=== PATIENT | female | born 1955 | race Hispanic/Latino ===

== ENCOUNTER 2019-01-26 06:57 | Observation (INO) | payer OTHER ==
[2019-01-23 11:11] VITALS: BP 158/84
[2019-01-23 11:18] LABS: BASOPHILS % (AUTO) 0.5 % (0.0-5.0); EOSINOPHILS % (AUTO) 1.1 % (0.0-8.0); HEMATOCRIT 31.5 % (36-48); LYMPHOCYTES % (AUTO) 21.5 % (21.0-51.0); MEAN CORPUSCULAR HEMOGLOBIN 30.8 pg (27.0-33.0); MEAN CORPUSCULAR HGB CONC 33.4 g/dL (32.0-36.0); MONOCYTES % (AUTO) 7.1 % (3.0-13.0); NEUTROPHILS % (AUTO) 69.8 % (40.0-77.0); PLATELET COUNT (AUTO) 191 K/uL (130-400); RED BLOOD CELL COUNT(AUTO) 3.42 MIL/uL (4.00-5.50); RED CELL DISTRIBUTION WIDTH 14.1 % (11.0-15.5); WHITE BLOOD COUNT (AUTO) 6.9 K/uL (4.8-10.8)
[2019-01-23 11:20] LABS: APPEARANCE,URINE Clear (CLEAR); BILIRUBIN,URINE Negative (NEGATIVE); COLOR,URINE Yellow (YELLOW); GLUCOSE, URINE (UA) Negative (NEGATIVE); KETONES,URINE Negative (NEGATIVE); LEUKOCYTE ESTERASE ,URINE Trace (NEGATIVE); NITRATE,URINE Negative (NEGATIVE); OCCULT BLOOD,URINE Negative (NEGATIVE); PROTEIN,URINE Negative (NEGATIVE)
[2019-01-23 11:30] LABS: BACTERIA,URINE Few /HPF (None Seen); RBC,URINE 0-1 /HPF (0-1); WBC,URINE 0-1 /HPF (0-1)
[2019-01-23 11:31] LABS: SQUAMOUS EPITHELIAL CELL,UR 0-2 /HPF (0-2)
[2019-01-23 11:43] LABS: INR 0.92 (0.85-1.15); PROTHROMBIN TIME 9.7 SEC (9.6-11.6)
--- NOTE | 2019-01-23 15:37 | NUR ---
LABS INFORMED DR. CEBALLOS OF ABNORMAL H/H/UA. NO ORDERS RECEIVED. PROCEED WITH PLANNED PROCEDURE.
[~2019-01-26] VITALS: Ht 162.6 cm; Wt 103.1 kg
[2019-01-26] VITALS (24 sets, daily range): BP systolic 95–138; BP diastolic 49–79
[2019-01-26] MEDS: CEFAZOLIN SODIUM 1 GM VIAL IVP SCH ×4 (06:00→23:59)
[~2019-01-26 06:57] MED LIST: ENAL20TA PO; GLIP10TA9 PO; METF-446 PO; PRAV40TA3 PO
[2019-01-26] MEDS ORDERED: CEFAZOLIN SODIUM 1 GM VIAL ONE ×2 (07:42→09:04)
[2019-01-26] MEDS ORDERED: TRANEXAMIC ACID 1000MG/10ML IV ONE ×2 (07:43→11:33)
[2019-01-26] MEDS ORDERED: SUCCINYLCHOLINE 200MG/10ML SYR ONE (07:45)
[2019-01-26] MEDS ORDERED: ROCURONIUM 10MG/1ML SYR 10 MG/ML ML ONE (07:45)
[2019-01-26] MEDS ORDERED: FENTANYL CITRATE PF 50 MCG/1 ML 2ML VIAL ONE (07:45)
[2019-01-26] MEDS ORDERED: SODIUM CHLORIDE 0.9% 1000ML 1,000 ML IV ONE (07:45)
[2019-01-26] MEDS ORDERED: MIDAZOLAM HCL 1 MG/ML 2ML VIAL ONE (07:45)
[2019-01-26] MEDS ORDERED: LIDOCAINE PF 2% 5ML ABBOJECT ONE (07:45)
[2019-01-26] MEDS ORDERED: PROPOFOL 10 MG/ML 20ML VIAL IV ONE (07:45)
[2019-01-26] MEDS ORDERED: LIDOCAINE HCL-MPF 1% 5ML AMP IJ ONE (07:49)
[2019-01-26] MEDS ORDERED: ROPIVACAINE 0.5% 5MG/ML 30ML IJ ONE (07:51)
[2019-01-26] MEDS ORDERED: SODIUM CHLORIDE 0.9% 10 ML VIAL ONE ×2 (07:51→09:14)
[2019-01-26] MEDS ORDERED: PHENYLEPHRINE HCL 10 MG/ML 1ML VIAL IV ONE (09:14)
[2019-01-26] MEDS ORDERED: NEOSTIGMINE 5MG/5ML SYR IV ONE (10:45)
[2019-01-26] MEDS ORDERED: GLYCOPYRROLATE 1 MG/5 ML SYRINGE ONE (10:45)
[2019-01-26] MEDS ORDERED: ONDANSETRON HCL 4 MG/2 ML VIAL ONE (10:45)
[2019-01-26] MEDS: SODIUM CHLORIDE 0.9% 1000ML 1,000 ML IV SCH ×3 (10:46→21:05)
[2019-01-26] MEDS ORDERED: KETOROLAC TROMETHAMINE 30MG/ML ONE (10:46)
[2019-01-26] MEDS ORDERED: TRAMADOL HCL 50 MG TABLET PO PRN (11:00)
[2019-01-26] MEDS ORDERED: LIDOCAINE HCL-MPF 1% 2ML VIAL IV PRN (11:00)
[2019-01-26] MEDS ORDERED: CALCIUM CARBONATE 500 MG TABLET PO PRN (11:00)
[2019-01-26] MEDS ORDERED: DiphenhydrAMINE HCL 50 MG/ML VIAL IVP PRN (11:00)
[2019-01-26] MEDS ORDERED: POTASSIUM CHLORIDE 10% ELIXIR 20 MEQ/15 ML UDCUP PO PRN (11:00)
[2019-01-26] MEDS ORDERED: KETOROLAC TROMETHAMINE 15MG/ML IV PRN (11:00)
[2019-01-26] MEDS ORDERED: FERROUS FUMARATE 324 MG TABLET PO PRN (11:00)
[2019-01-26] MEDS: ACETAMINOPHEN EXTRA STRENGTH 500 MG TABLET PO SCH ×2 (11:00→21:13)
[2019-01-26] MEDS ORDERED: POTASSIUM CHLORIDE 20 MEQ ERTAB PO PRN (11:00)
[2019-01-26] MEDS ORDERED: POTASSIUM CHLORIDE 20MEQ/100ML 100 ML IV PRN (11:00)
[2019-01-26] MEDS ORDERED: ONDANSETRON HCL 4 MG/2 ML VIAL IVP PRN (11:00)
[2019-01-26] MEDS ORDERED: TEMAZEPAM 15 MG CAPSULE PO PRN (11:00)
[2019-01-26] MEDS ORDERED: OXYCODONE HCL 5 MG TAB PO PRN (11:00)
[2019-01-26] MEDS ORDERED: MEPERIDINE-PF 25 MG/ML SYG ONE ×2 (11:09→11:46)
[2019-01-26] MEDS: INSULIN HUMULIN R 100 UNIT/ML 3ML SQ SCH ×3 (11:30→21:00)
[2019-01-26] MEDS ORDERED: MILK175C5 PO (12:30)
[2019-01-26] MEDS ORDERED: FLUT16H NASAL (12:30)
[2019-01-26] MEDS ORDERED: ALOE VERA PO (12:30)
[2019-01-26] MEDS ORDERED: ASPI-1005 PO (12:30)
[2019-01-26] MEDS ORDERED: GINK60CA2 PO (12:30)
[2019-01-26] MEDS ORDERED: PIOG30TA10 PO (12:30)
[2019-01-26] MEDS ORDERED: ASCO10007 PO (12:30)
[2019-01-26] MEDS ORDERED: TURMERIC CURCUMIN PO (12:30)
[2019-01-26] MEDS ORDERED: ACET-2743 PO (12:30)
[2019-01-26] MEDS ORDERED: CACTUS PO (12:30)
[2019-01-26] MEDS ORDERED: UBID50TA3 PO (12:30)
[2019-01-26] MEDS ORDERED: MORINGA PO (12:30)
[2019-01-26] MEDS ORDERED: CHOL50004 PO (12:30)
[2019-01-26] MEDS ORDERED: FLAX100030 PO (12:30)
[2019-01-26] MEDS ORDERED: CALC-239 PO (12:30)
[2019-01-26] MEDS ORDERED: BIOT10004 PO (12:30)
[2019-01-26] MEDS ORDERED: GARL1000 PO (12:30)
[2019-01-26] MEDS: ENALAPRIL MALEATE 10 MG TABLET PO SCH (15:00)
--- NOTE | 2019-01-26 15:26 | NUR ---
DCP CM met with pt discussed dc plans. Pt is independent prior to surgery, lives at home with spuse and daughter. Pt brizuela a cane. Denies any other equipments/services. Pt feels safe to go back home, spouse able to assist with transportation and needs as necessary. Pt agreeable for home w/HH and DME, LYSSA signed for [facility] and [facility]. DC plan to home w/HH and DME. CM to cont to follow up. Addendum: 01/26/19 at 1528 by YONATAN GRIMM LVN CM Amended: Links added.
--- NOTE | 2019-01-26 15:38 | NUR ---
CM Note: [facility] pending approval and delivery for standard walker no wheels and 3 in 1 chair. Faxed order and clinicals to [facility], confirmation received. Spoke to Constanza, will work on standard walker no wheels and 3 in 1 chair. Aware dcp for tomorrow. Pt pending approval and delivery at this time. Primary nurse aware. CM to cont to follow up.
--- NOTE | 2019-01-26 15:48 | NUR ---
AMANUEL Note: [facility] pending approval CM faxed order and clinicals to [facility], confirmation received. Spoke to Normal will wait for papers. Pt pending approval. Primary nurse aware. CM to cont to follow up.
[2019-01-26] MEDS: METFORMIN HCL 500 MG TABLET PO SCH (16:54)
[2019-01-26] MEDS ORDERED: SIMVASTATIN 20 MG TABLET PO SCH (21:00)
[2019-01-26] MEDS ORDERED: TAMSULOSIN HCL 0.4 MG CAP.ER.24H PO SCH (21:00)
[2019-01-26] MEDS ORDERED: BIOTENE MOISTURIZING SPRAY 44.3ML SPRAY MM SCH (21:00)
[2019-01-26] MEDS: PREGABALIN 25 MG CAP PO SCH (21:12)
[2019-01-26] MEDS: CELECOXIB 200 MG CAP PO SCH (21:13)
[2019-01-26] MEDS: ASPIRIN 325 MG TABLET PO SCH (21:13)
[2019-01-26] MEDS: FAMOTIDINE 20MG TAB 20 MG TAB PO SCH (21:13)
[2019-01-26] MEDS: OXYCODONE HCL 5 MG TAB PO PRN (21:24)
[2019-01-27] MEDS: OXYCODONE HCL 5 MG TAB PO PRN ×4 (02:12→14:29)
[2019-01-27] MEDS: ACETAMINOPHEN EXTRA STRENGTH 500 MG TABLET PO SCH ×2 (02:15→11:02)
[2019-01-27 04:00] VITALS: BP 116/65
[2019-01-27] MEDS: CEFAZOLIN SODIUM 1 GM VIAL IVP SCH (04:26)
[2019-01-27 04:42] LABS: HEMATOCRIT 24.4 % (36-48); MEAN CORPUSCULAR HEMOGLOBIN 30.7 pg (27.0-33.0); MEAN CORPUSCULAR HGB CONC 33.6 g/dL (32.0-36.0); MEAN CORPUSCULAR VOLUME 91.4 fL (79-99); PLATELET COUNT (AUTO) 155 K/uL (130-400); RED BLOOD CELL COUNT(AUTO) 2.67 MIL/uL (4.00-5.50); RED CELL DISTRIBUTION WIDTH 14.1 % (11.0-15.5)
[2019-01-27 04:55] LABS: POTASSIUM 3.7 mmol/L (3.5-5.1)
[2019-01-27] MEDS: SODIUM CHLORIDE 0.9% 1000ML 1,000 ML IV SCH (05:46)
[2019-01-27] MEDS: INSULIN HUMULIN R 100 UNIT/ML 3ML SQ SCH ×2 (05:48→11:31)
[2019-01-27] MEDS: METFORMIN HCL 500 MG TABLET PO SCH (07:28)
[2019-01-27 07:48] VITALS: BP 131/70
[2019-01-27] MEDS: PREGABALIN 25 MG CAP PO SCH (08:54)
[2019-01-27] MEDS: ENALAPRIL MALEATE 10 MG TABLET PO SCH (08:54)
[2019-01-27] MEDS: CELECOXIB 200 MG CAP PO SCH (08:54)
[2019-01-27] MEDS: FAMOTIDINE 20MG TAB 20 MG TAB PO SCH (08:55)
[2019-01-27] MEDS: ASPIRIN 325 MG TABLET PO SCH (08:55)
[2019-01-27] MEDS ORDERED: CHOLECALCIFEROL 5000 UNIT PO SCH (09:00)
[2019-01-27] MEDS ORDERED: POLYETHYLENE GLYCOL 3350 17 GM POWD.PACK PO SCH (09:00)
[2019-01-27] MEDS ORDERED: GLIPIZIDE 5 MG TABLET PO SCH (09:00)
[2019-01-27] MEDS ORDERED: PIOGLITAZONE HCL 30 MG TAB PO SCH (09:00)
--- NOTE | 2019-01-27 09:30 | NUR ---
CM Note: [facility] approved and delivered standard walker no wheels and 3 in 1 chair. CM spoke to Darlene devlin/[facility] pt standard walker and 3 in 1 chair approved and delivered. Checked w/pt, DMEs in room. Primary nurse aware. CM to cont to follow up.
--- NOTE | 2019-01-27 10:00 | NUR ---
CM Note: [facility] approved Spoke to Monse claus/. pt has approval and acceptance. pt safe to dc to home via private car. primary nurse aware. CM to cont to follow up.
[2019-01-27 11:14] VITALS: BP 135/73
[2019-01-27] MEDS ORDERED: FERR324T10 PO (12:38)
[2019-01-27] MEDS ORDERED: ASPI-1012 PO (12:38)
[2019-01-27] MEDS ORDERED: HYDR-4457 PO (12:38)
--- NOTE | 2019-01-27 15:45 | NUR ---
INSTRUCTIONS DISCHARGE INSTRUCTIONS GIVEN TO PATIENT AND FAMILY USING TEACH BACK. DRESSING CHANGED RIGHT KNEE PER MD ORDER. IV REMOVED WITH TIP INTACT. DIRECT PRESSURE APPLIED UNTIL BLEEDING CONTROLLED THEN SITE COVERED WITH GAUZE AND SECURED WITH TAPE. F/U APPOINTMENT HAS BEEN MADE. REPORT HAS BEEN CALLED TO [facility], SPOKE TO LUCIE CARDOZO. PENDING RIDE HOME.
[2019-01-27] MEDS ORDERED: BIOTENE MOISTURIZING SPRAY 44.3ML SPRAY MM SCH (21:00)
[2019-01-29] MEDS ORDERED: BISACODYL 10 MG SUPP.RECT RC PRN (11:00)
== END 2019-01-27 17:19 | disposition home health service (06) ==
LOC: DAH 06:57 → DAHIP 06:58 → DAH 06:58 → 4AH 12:36
PROVIDERS: ADMIT Orthopaedic Surgery; ATTEND Orthopaedic Surgery
DX: M17.11 Unilateral primary osteoarthritis, right knee (principal); I10 Essential (primary) hypertension; Z90.89 Acquired absence of other organs; Z90.49 Acquired absence of other specified parts of digestive tract; Z79.899 Other long term (current) drug therapy; Z79.01 Long term (current) use of anticoagulants
CPT/HCPCS: 27447; 36415 ×2; 80048; 81001; 82948 ×6; 85025; 85027; 85610; 87641; 88304; 88311; 96372; 96374; 96375; 96376 ×2; 97116 ×3; 97161; 97530 ×3; A4215; A4221; A4222; A4223; A4649 ×8; A4663; A4930 ×2; C1763; C1776; G0168; G0378 ×29; G8978; G8979; G8980; G8981; G8982; G8983; J0330; J0690 ×5; J1815 ×3; J1885 ×2; J2001; J2175 ×2; J2250; J2370; J2405; J2704; J2710; J2795; J3010; J3490 ×3; J7030 ×2

== ENCOUNTER → 2022-07-18 | Outpatient (CLI) | payer OTHER ==
[~2022-07-18] MED LIST changes: +ACET-2743 PO; +ASCO100031 PO; +ASPI-1012 PO; +BIOT10004 PO; +CALC-242 PO; +CHOL50004 PO; -ENAL20TA PO; +ENAL20TA18 PO; +FERR324T10 PO; +FLAX100030 PO; +FLUT16H NASAL; +MILK175C5 PO; +PIOG30TA70 PO; +TRAM50TA4 PO
== END | disposition home or self-care (01) ==
LOC: RAH 09:14
PROVIDERS: ATTEND Family Medicine
DX: Z01.818 Encounter for other preprocedural examination (principal); E11.9 Type 2 diabetes mellitus without complications; I11.9 Hypertensive heart disease without heart failure; M47.815 Spondylosis without myelopathy or radiculopathy, thoracolumbar region
CPT/HCPCS: 71046

== ENCOUNTER 2022-08-27 06:51 | Observation (INO) | payer OTHER ==
[2022-08-24 11:11] VITALS: BP 155/68
[2022-08-24 11:17] LABS: ALBUMIN 3.7 g/dL (3.5-5.0); CARBON DIOXIDE 25 mmol/L (21-32); CHLORIDE 101 mmol/L (101-111); CREATININE 1.2 mg/dL (0.5-1.5); GLOMERULAR FILTR. RATE CALC 49 mL/min (>90); POTASSIUM 4.8 mmol/L (3.5-5.1); SODIUM SERUM 135 mmol/L (136-145); UREA NITROGEN, BLOOD 27 mg/dL (7-18)
[2022-08-24 11:20] LABS: BASOPHILS % (AUTO) 0.6 % (0.0-5.0); EOSINOPHILS % (AUTO) 1.2 % (0.0-8.0); HEMATOCRIT 33.5 % (36-48); LYMPHOCYTES % (AUTO) 24.2 % (21.0-51.0); MEAN CORPUSCULAR HEMOGLOBIN 29.8 pg (27.0-33.0); MEAN CORPUSCULAR HGB CONC 31.9 g/dL (32.0-36.0); MEAN CORPUSCULAR VOLUME 93.3 fL (79-99); MONOCYTES % (AUTO) 6.3 % (3.0-13.0); NEUTROPHILS % (AUTO) 66.4 % (40.0-77.0); PLATELET COUNT (AUTO) 228 K/uL (130-400); RED BLOOD CELL COUNT(AUTO) 3.59 MIL/uL (4.00-5.50); RED CELL DISTRIBUTION WIDTH 13.2 % (11.0-15.5); WHITE BLOOD COUNT (AUTO) 6.9 K/uL (4.8-10.8)
[2022-08-24 11:21] LABS: APPEARANCE,URINE CLEAR (CLEAR); BILIRUBIN,URINE NEGATIVE (NEGATIVE); COLOR,URINE YELLOW (YELLOW); GLUCOSE, URINE (UA) >=1000 mg/dL (NEGATIVE); KETONES,URINE NEGATIVE (NEGATIVE); LEUKOCYTE ESTERASE ,URINE NEGATIVE Leu/uL (NEGATIVE); NITRATE,URINE NEGATIVE (NEGATIVE); OCCULT BLOOD,URINE NEGATIVE (NEGATIVE); PROTEIN,URINE NEGATIVE (NEGATIVE); UROBILINOGEN,URINE 0.2 mg/dL (0.2-1.0)
[2022-08-24 11:25] LABS: CRP QUANTITATIVE < 2.00 mg/L (0.00-9.0)
[2022-08-24 11:26] LABS: GLUCOSE,RANDOM 404 mg/dL (70-105)
[2022-08-24 11:37] LABS: BACTERIA,URINE Rare /HPF (None Seen); RBC,URINE None Seen /HPF (0-1); WBC,URINE 0-1 /HPF (0-1)
[2022-08-24 11:38] LABS: SQUAMOUS EPITHELIAL CELL,UR Rare /HPF (0-2)
[2022-08-24 11:50] LABS: INR 0.93 (0.85-1.15); PROTHROMBIN TIME 9.8 SEC (9.6-11.6)
[2022-08-24 11:51] LABS: PARTIAL THROMBOPLASTIN TIME 24.4 SEC (26.3-35.5)
[~2022-08-27] VITALS: Ht 162.6 cm; Wt 97.5 kg
[2022-08-27] VITALS (26 sets, daily range): BP systolic 100–155; BP diastolic 48–85
[~2022-08-27 06:51] MED LIST changes: -ACET-2743 PO; -ASCO100031 PO; -ASPI-1012 PO; -BIOT10004 PO; -CALC-242 PO; -CHOL50004 PO; +ENAL-91 PO; -ENAL20TA18 PO; -FERR324T10 PO; -FLAX100030 PO; -FLUT16H NASAL; +GABA-529 PO; -MILK175C5 PO; +PIOG30TA10 PO; -PIOG30TA70 PO; -TRAM50TA4 PO
[2022-08-27] MEDS ORDERED: 0.9%NACL 1000ML 1,000 ML IV ONE (07:30)
[2022-08-27] MEDS: CEFAZOLIN SODIUM 2 GM VIAL ONE ×2 (07:47→10:00)
[2022-08-27] MEDS: VANCOMYCIN 1.5 GM/250 ML BAG 250 ML IV SCH (07:48)
[2022-08-27] MEDS ORDERED: CEFAZOLIN SODIUM 1 GM VIAL ONE (09:14)
[2022-08-27] MEDS ORDERED: PROPOFOL 10 MG/ML 20ML VIAL IV ONE (09:16)
[2022-08-27] MEDS ORDERED: MIDAZOLAM HCL 1 MG/ML 2ML VIAL ONE (09:16)
[2022-08-27] MEDS ORDERED: ONDANSETRON 4MG INJ ONE (09:16)
[2022-08-27] MEDS ORDERED: ROCURONIUM 10MG/1ML SYR 10 MG/ML ML ONE ×2 (09:16→12:03)
[2022-08-27] MEDS ORDERED: FENTANYL CITRATE PF 50 MCG/1 ML 2ML VIAL ONE ×3 (09:16→10:54)
[2022-08-27] MEDS ORDERED: KETOROLAC 30MG VIAL (30MG/ML) ONE (09:17)
[2022-08-27] MEDS ORDERED: ROPIVACAINE 0.5% 5MG/ML 30ML IJ ONE (09:18)
[2022-08-27] MEDS ORDERED: DEXAMETHASONE SOD PHOSPHATE 4 MG/ML 1ML VIAL ONE (09:47)
[2022-08-27] MEDS: TRANEXAMIC ACID 1000MG/10ML ONE ×2 (10:35→11:30)
[2022-08-27] MEDS ORDERED: PHENYLEPHRINE HCL 10 MG/ML 1ML VIAL IV ONE (11:25)
[2022-08-27] MEDS ORDERED: KCL 20 MEQ ERTAB PO PRN (12:00)
[2022-08-27] MEDS ORDERED: KETOROLAC 15MG/ML VIAL (15MG/ML) IV PRN (12:00)
[2022-08-27] MEDS ORDERED: CYCLOBENZAPRINE HCL 10 MG TABLET PO PRN (12:00)
[2022-08-27] MEDS ORDERED: TRAMADOL HCL 50 MG TABLET PO PRN (12:00)
[2022-08-27] MEDS ORDERED: POTASSIUM CHLORIDE 10% ELIXIR 20 MEQ/15 ML UDCUP PO PRN (12:00)
[2022-08-27] MEDS ORDERED: CALCIUM CARB 500MG PO PRN (12:00)
[2022-08-27] MEDS ORDERED: POTASSIUM CHLORIDE 20MEQ/100ML 100 ML IV PRN (12:00)
[2022-08-27] MEDS: DOCUSATE SODIUM 100 MG CAP PO SCH (12:00)
[2022-08-27] MEDS ORDERED: ONDANSETRON 4MG INJ IVP PRN (12:00)
[2022-08-27] MEDS ORDERED: FERROUS FUMARATE 324 MG TABLET PO PRN (12:00)
[2022-08-27] MEDS ORDERED: 0.9%NACL 1000ML 1,000 ML IV SCH (12:00)
[2022-08-27] MEDS ORDERED: MEPERIDINE-PF 25 MG/ML SYG ONE (12:02)
[2022-08-27] MEDS ORDERED: NEOSTIGMINE 5MG/5ML SYR IV ONE (12:03)
[2022-08-27] MEDS ORDERED: GLYCOPYRROLATE 1 MG/5 ML SYRINGE ONE (12:03)
[2022-08-27] MEDS: KETOROLAC 15MG/ML VIAL (15MG/ML) IV SCH ×2 (12:46→20:21)
[2022-08-27] MEDS: GABAPENTIN 100 MG CAPSULE PO SCH ×2 (16:04→20:21)
[2022-08-27] MEDS: CEFAZOLIN SODIUM 1 GM VIAL IVP SCH ×2 (17:17→23:55)
[2022-08-27] MEDS: INSULIN HUMULIN R 100 UNIT/ML 3ML SQ SCH ×2 (17:27→20:22)
[2022-08-27] MEDS ORDERED: VANCOMYCIN 1G/250ML KIT 250 ML IV SCH (18:00)
[2022-08-28] MEDS: HYDROCODONE/ACETAMINOPHEN 5/325 MG TAB PO PRN ×2 (01:03→08:11)
[2022-08-28 04:16] VITALS: BP 97/50
[2022-08-28] MEDS: KETOROLAC 15MG/ML VIAL (15MG/ML) IV SCH ×2 (04:23→13:11)
[2022-08-28 04:57] LABS: HEMATOCRIT 27.6 % (36-48); MEAN CORPUSCULAR HEMOGLOBIN 29.7 pg (27.0-33.0); MEAN CORPUSCULAR HGB CONC 31.5 g/dL (32.0-36.0); MEAN CORPUSCULAR VOLUME 94.2 fL (79-99); RED BLOOD CELL COUNT(AUTO) 2.93 MIL/uL (4.00-5.50); RED CELL DISTRIBUTION WIDTH 13.4 % (11.0-15.5); WHITE BLOOD COUNT (AUTO) 8.6 K/uL (4.8-10.8)
[2022-08-28 05:13] LABS: CREATININE 1.1 mg/dL (0.5-1.5); POTASSIUM 4.6 mmol/L (3.5-5.1)
[2022-08-28] MEDS: INSULIN HUMULIN R 100 UNIT/ML 3ML SQ SCH ×3 (06:11→16:40)
[2022-08-28] MEDS: VANCOMYCIN 1.5 GM/250 ML BAG 250 ML IV SCH (06:12)
[2022-08-28 08:00] VITALS: BP 122/66
[2022-08-28] MEDS ORDERED: ASPIRIN 325MG TAB PO SCH (09:00)
[2022-08-28] MEDS ORDERED: VANCOMYCIN 500MG+NS 100ML 100 ML IV SCH (09:00)
[2022-08-28] MEDS ORDERED: POLYETHYLENE GLYCOL 3350 17 GM POWD.PACK PO SCH (09:00)
[2022-08-28] MEDS: GABAPENTIN 100 MG CAPSULE PO SCH ×2 (09:04→13:10)
[2022-08-28 12:00] VITALS: BP 131/68
[2022-08-28] MEDS: DOCUSATE SODIUM 100 MG CAP PO SCH (13:10)
[2022-08-28 16:00] VITALS: BP 138/74
[2022-08-28] MEDS ORDERED: GABA100C PO (16:16)
[2022-08-28] MEDS ORDERED: CYCL-309 PO (16:16)
[2022-08-28] MEDS ORDERED: DOCU-116 PO (16:16)
[2022-08-28] MEDS ORDERED: ASPI-1026 PO (16:16)
[2022-08-28] MEDS ORDERED: HYDR-4060 PO (16:16)
[2022-08-30] MEDS ORDERED: BISACODYL 10 MG SUPP.RECT RC PRN (12:00)
== END 2022-08-28 17:55 | disposition home or self-care (01) ==
LOC: DAH 06:51 → DAHIP 06:52 → 3DH 13:15 → 4DH 13:30
PROVIDERS: ADMIT Student in an Organized Health Care Education/Training Program; ATTEND Student in an Organized Health Care Education/Training Program
DX: M17.12 Unilateral primary osteoarthritis, left knee (principal); Z20.822 Contact with and (suspected) exposure to COVID-19; D62 Acute posthemorrhagic anemia; I10 Essential (primary) hypertension; E11.65 Type 2 diabetes mellitus with hyperglycemia; G89.29 Other chronic pain; Z79.84 Long term (current) use of oral hypoglycemic drugs; Z90.49 Acquired absence of other specified parts of digestive tract; Z96.651 Presence of right artificial knee joint; Z79.899 Other long term (current) drug therapy; Z98.890 Other specified postprocedural states
CPT/HCPCS: 82040; 80048 ×2; 85025; 85610; 85730; 87088; 84134; 86140; 87426; 81001; 36415 ×2; 87641; 27447; 96365; 96366 ×2; 96375; 96368; 64447; 82948 ×7; 73560; 97161; 97039 ×3; 97530 ×3; 96376; 85027; 97116 ×2; J1815 ×2; J1100; A4223 ×2; G0378 ×27; A4663; A4215 ×2; J3010 ×3; J0690 ×3; J3490 ×2; J2710; J7030; J2250; J2704; J2405; J1885 ×5; J2175; J2795; J2370; J3370 ×3; G0168; A4649 ×4; C1713; C1776; A6255; A4222; A4221